=== PATIENT | female | born 1950 | race Caucasian/White ===

== ENCOUNTER → 2023-10-18 07:47 | Outpatient (REF) | payer MEDICARE, OTHER, SELFPAY | LOC: WDC 07:47 | PROVIDERS: ATTENDING PHYSICIAN Family Medicine | DX: Z12.31 Encounter for screening mammogram for malignant neoplasm of breast (principal) | CPT/HCPCS: 77063; 77067 ==

== ENCOUNTER → 2023-10-22 07:38 | Outpatient (REF) | payer MEDICARE, OTHER, SELFPAY | LOC: RAD 07:38 | PROVIDERS: ATTENDING PHYSICIAN Family Medicine | DX: M85.89 Other specified disorders of bone density and structure, multiple sites (principal) | CPT/HCPCS: 77080 ==

== ENCOUNTER → 2024-05-14 09:12 | Outpatient (REF) | payer MEDICARE, OTHER, SELFPAY | LOC: RAD 09:12 | PROVIDERS: ATTENDING PHYSICIAN Family Medicine | DX: M54.2 Cervicalgia (principal) | CPT/HCPCS: 72050 ==

== ENCOUNTER → 2024-10-20 07:31 | Outpatient (REF) | payer MEDICARE, OTHER, SELFPAY | LOC: WDC 07:31 | PROVIDERS: ATTENDING PHYSICIAN Family Medicine | DX: Z12.31 Encounter for screening mammogram for malignant neoplasm of breast (principal) | CPT/HCPCS: 77063; 77067 ==